=== PATIENT | male | born 1975 | race Caucasian/White ===

== ENCOUNTER 2017-09-18 13:54 | Inpatient (IN) | payer OTHER ==
--- NOTE | 2017-09-18 14:38 | ED Physician Documentation ---
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 He had a CT scan done today showing a concern for appendicitis and was referred to the emergency department. When I asked him why he had a CAT scan done he said it was just screening prior to his planned alcohol detoxification admission. He says he really has not had any abdominal pain, maybe a little in the mornings. He says he has not had any alcohol to drink today but was last drinking p.o. liquids at 1 PM.) Review of Systems Ten Systems: 10 systems reviewed and negative Constitutional: denies: Fever, Chills Respiratory: denies: Dyspnea, Cough GI: reports: Abdominal Pain. denies: Nausea, Vomiting, Diarrhea PD PAST MEDICAL HISTORY - Past Medical History Past Medical History: No - Present Medications Home Medications: Ambulatory Orders Medication Instructions Recorded Confirmed No Known Home Medications [No 09/18/17 09/18/17 Known Home Medications] - Allergies Allergies/Adverse Reactions: Allergies Allergy/AdvReac Type Severity Reaction Status Date / Time Penicillins Allergy Unknown Verified 09/18/17 14:04 - Social History Does the pt smoke?: Yes Smoking Status: Current every day smoker Does the pt drink ETOH?: Yes Does the pt have substance abuse?: Yes - Family History Family history: reports: Non contributory PD ED PE NORMAL - Vitals Vital signs reviewed: Yes - General General: Alert and oriented X 3, No acute distress - HEENT HEENT: Pharynx benign, Other (He says he has not been drinking today but his words are a little slurred and he has bloodshot eyes.) - Neck Neck: Supple, no meningeal sign, No bony TTP - Cardiac Cardiac: RRR, No murmur - Respiratory Respiratory: No respiratory distress, Clear bilaterally - Abdomen Abdomen: Normal bowel sounds, Soft, Non tender - Back Back: No CVA TTP, No spinal TTP - Derm Derm: Normal color, Warm and dry - Extremities Extremities: No edema, No calf tenderness / cord - Neuro Neuro: Alert and oriented X 3, Normal speech - Psych Psych: Normal mood, Normal affect Results - Vitals Vitals: Vital Signs - 24 hr 09/18/17 13:59 Temperature 37.8 C H Heart Rate 115 H Respiratory 18 Rate Blood Pressure 158/84 H O2 Saturation 97 Oxygen O2 Source Room air - Labs Labs: Laboratory Tests 09/18/17 09/18/17 09/18/17 14:30 14:30 14:30 WBC 14.8 H RBC 4.75 Hgb 12.7 L Hct 38.5 L MCV 81.1 MCH 26.8 L MCHC 33.1 RDW 20.9 H Plt Count 156 MPV 8.1 Neut # (Auto) 10.5 H Lymph # (Auto) 2.5 [place] # (Auto) 1.2 H Eos # (Auto) 0.4 Baso # (Auto) 0.1 Absolute Nucleated RBC 0.01 Nucleated RBC % 0.0 PT 16.2 H INR 1.5 H Sodium 132 L Potassium 3.2 L Chloride 97 L Carbon Dioxide 24 Anion Gap 11.0 BUN 9 Creatinine 0.7 Estimated GFR (MDRD) 124 Glucose 164 H Calcium 9.0 Total Bilirubin 2.7 H AST 106 H ALT 56 Alkaline Phosphatase 121 Total Protein 8.3 H Albumin 3.6 Globulin 4.7 H Albumin/Globulin Ratio 0.8 L Lipase 73 H Ethyl Alcohol < 5.0 PD MEDICAL DECISION MAKING - ED course Complexity details: reviewed old records ([facility] today reviewed showing Appendicitis with early phlegmon or abscess behind the cecum, hepatosplenomegaly with portal varices and other incidental findings. ), re-evaluated patient ED course: 41-year-old gentleman with a CT scan from outpatient showing appendicitis, corresponding history and physical are inconsistent. White count as an outpatient was on the Was 14.8 so similar to today. I spoke with the on- call surgeon, Dr. Whipple who defers to medicine for admission. He feels that at this point this is medical management with an interval Appendectomy in about 6 weeks time unless he develops an abscess in which case he might need percutaneous drainage. He recommends Cipro and Flagyl IV and will need prolonged IV antibiotic therapy. Again no surgery now. Call to Dr. Aquino for admission at 3:04 PM. I ordered the Cipro but am holding the Flagyl until his alcohol level is resulted. - Sepsis Event Vital Signs: Vital Signs - 24 hr 09/18/17 13:59 Temperature 37.8 C H Heart Rate 115 H Respiratory 18 Rate Blood Pressure 158/84 H O2 Saturation 97 Oxygen O2 Source Room air Departure - Departure Disposition: 66 [facility] DC/Xfer Clinical Impression: Ruptured appendicitis Condition: Stable
[2017-09-18 14:52] LABS: INR 1.5 (0.8-1.2); PT - PROTHROMBIN TIME 16.2 secs (9.9-12.6)
[2017-09-18 15:00] LABS: ALBUMIN 3.6 g/dL (3.2-5.5); ALBUMIN/GLOBULIN RATIO 0.8 (1.0-2.2); ALKALINE PHOSPHATASE 121 IU/L (42-121); ALT ALANINE AMINOTRANSFERASE 56 IU/L (10-60); AST ASPARTATE AMINOTRANSFERASE 106 IU/L (10-42); BASOPHILS # (AUTO) 0.1 10^3/uL (0.0-0.1); BASOPHILS % (AUTO) 0.8 %; BILIRUBIN,TOTAL 2.7 mg/dL (0.2-1.0); BUN - BLOOD UREA NITROGEN 9 mg/dL (6-20); CARBON DIOXIDE - CO2 24 mmol/L (21-32); CHLORIDE 97 mmol/L (101-111); CREATININE 0.7 mg/dL (0.6-1.2); EOSINOPHILS # (AUTO) 0.4 10^3/uL (0.0-0.7); EOSINOPHILS % (AUTO) 2.5 %; GFR - MDRD 124 (>89); GLUCOSE 164 mg/dL (70-100); HGB - HEMOGLOBIN 12.7 g/dL (14.0-18.0); LIPASE 73 U/L (22-51); LYMPHOCYTES # (AUTO) 2.5 10^3/uL (1.5-3.5); MEAN CORPUSCULAR HEMOGLOBIN 26.8 pg (27.0-31.0); MEAN CORPUSCULAR HGB CONC 33.1 g/dL (32.0-36.0); MEAN CORPUSCULAR VOLUME 81.1 fL (80.0-94.0); MEAN PLATELET VOLUME 8.1 fL (7.4-11.4); MONOCYTES # (AUTO) 1.2 10^3/uL (0.0-1.0); MONOCYTES % (AUTO) 8.2 %; NEUTROPHILS # (AUTO) 10.5 10^3/uL (1.5-6.6); NEUTROPHILS % (AUTO) 71.5 %; PLT - PLATELET COUNT 156 10^3/uL (130-450); RED BLOOD COUNT 4.75 10^6/uL (4.70-6.10); RED CELL DISTRIBUTION WIDTH 20.9 % (12.0-15.0); SODIUM 132 mmol/L (135-145); TOTAL PROTEIN 8.3 g/dL (6.7-8.2); WHITE BLOOD COUNT 14.8 x10^3/uL (4.8-10.8)
[2017-09-18] MEDS ORDERED: CIPROFLOXACIN 400 MG/200 ML 200 ML IV ONE (15:02)
[2017-09-18] MEDS ORDERED: POTASSIUM CHLOR 10 MEQ/100 ML 10 MEQ/100 ML BAG IV ONE (15:20)
[2017-09-18] MEDS ORDERED: metroNIDAZOLE 500 MG/100 ML 500 MG/100 ML BAG IV ONE (15:20)
--- NOTE | 2017-09-18 15:55 | HISTORY & PHYSICAL EXAMINATION ---
Chief Complaint - Chief Complaint Chief Complaint: recommended d/t appendicitis History of Present Illness - Admitted From Admitted From:: ED - History Obtained From Records Reviewed: yes History obtained from: chart review, patient Exam Limitations: none - History of Present Illness HPI Comment/Other: Ilya Denise is a 41-year old male with a past medical history of current tobacco dependence, alcoholism-currently uses, possible sleep apnea and no other medical conditions. He came to the ED today for further work up of a suspected ruptured appendix after getting a pre-admission abdominal CT in order for acceptance into [facility] detox through the [facility]. Upon arrival to the ED labs show an elevated WBC count of 14.8, slight anemia with an H/H of 12.7/38.5 , elevated PT/INR of 16.2/1.5, a low sodium of 132, low potassium of 3.2, an elevated glucose at 164 and an elevated AST at 106, an elevated lipase at 73. The patient was febrile with a temp of 37.8, tachycardia with a heart rate of 115, and hypertensive with a blood pressure of 158/84. Upon exam, surprisingly , the patient does not have abdominal pain, and has not leading up to this presentation. General surgery was consulted, and we will admit the patient to inpatient and start IV antibiotics, and carefully monitor for alcohol withdrawal. 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 He has one brother with no known illnesses. Living arrangement: At home Living Situation: With spouse/s.o. 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 He lives with his , Maninder of 14 years. They have no children. On Sunday, Sunday, and Sunday, he admits to heavy drinking in which he consumes 8-12 beers, and several hard liquor shots. He denies illicit drug use. He admits to at least 1 PPD since age 13 of tobacco dependence. He wishes to be a FULL code. - Substance History Use: Uses substance without health or social issues: Tobacco, Alcohol Use Issues: Mood Disorder Abuse: Recurrent use of substance despite neg consequences: Alcohol Abuse Issues: Intoxication Dependence: Experiences withdrawal or developed tolerances: Tobacco, Alcohol Dependence Issues: Intoxication, Mood Disorder Tobacco Details: Cigarettes - POLST Patient has POLST: No POLST Status: Full Code Meds/Allgy - Home Medications Home Medications: Ambulatory Orders Medication Instructions Recorded Confirmed No Known Home Medications [No 09/18/17 09/18/17 Known Home Medications] - Allergies Allergies/Adverse Reactions: Allergies Allergy/AdvReac Type Severity Reaction Status Date / Time Penicillins Allergy Unknown Verified 09/18/17 14:04 Review of Systems - Ears, Nose & Throat Ears, Nose & Throat: reports: Postnasal drainage - Cardiovascular Cariovascular: reports: Palpitations - Respiratory Respiratory: reports: Snoring, Apnea - Gastrointestinal Gastrointestinal: reports: Abdominal distention, Reflux/heartburn, Bloating - Genitourinary Genitourinary: reports: Frequency, Nocturia - Neurological Neurological: reports: General weakness, Pre-existing deficit - All Other Systems All Other Systems: reports: Reviewed and negative Exam - Vital Signs Reviewed Vital Signs: Yes Vital Signs: Vital Signs x48h Temp Pulse Resp BP Pulse Ox 09/18/17 13:59 37.8 C H 115 H 18 158/84 H 97 - Physical Exam General Appearance: positive: No acute distress, Alert Eyes Bilateral: positive: Normal inspection, Other (+bilateral scleral icterus) ENT: positive: ENT inspection nml, Pharyngeal erythema Neck: positive: Nml inspection, No JVD, Stiff neck Respiratory: positive: Chest non-tender, No respiratory distress, Breath sounds nml Cardiovascular: positive: Regular rate & rhythm, No gallop, Systolic murmur Peripheral Pulses: positive: 2+ Abdomen: positive: Non-tender, Hepatomegaly, Other (rounded, firm, hyperactive BS) Back: positive: Nml inspection Skin: positive: No rash, Warm, Diaphoresis, Other (overal sun looking) Extremities: positive: Non-tender, Full ROM, Nml appearance, No pedal edema Neurologic/Psychiatric: positive: Oriented x3, CN's nml (2-12), Motor nml, Sensation nml, Depressed mood/affect Reflexes: Bicep (R): 3+, Bicep (L): 3+ Conclusion/Plan - Problem List (1) Alcoholism with alcohol dependence Conclusion/Plan: The patient is nearing an admission to detox center ([facility]) that is being managed by the as he is active duty and works [place] the [place] in [place]. He admits to Sunday, Sunday, and Sunday in which he consumes at least 8-12 beers in one sitting with several hard liquor shots. He also admits to not always working everyday, so this may be more often. He admits to drinking ever since the age of 20. Upon exam, he is found to have sweaty palms , sweaty forehead, tremors, and mild anxiety. She is also noted to have scleral icterus, and a firm rounded abdomen. He admits to occasional (a few times per year) of blacking out from drinking. Plan: CIWA with scheduled and PRN lorazepam, telemetry, and nursing scoring. Monitor for worsening of symptoms. (2) Tobacco dependence Conclusion/Plan: The patient requests a nicotine patch and admits to 1PPD smoking history since age 13 years. Plan: continue nicotine. (3) Acute phlegmonous appendicitis Conclusion/Plan: General surgery has been consulted and films from [facility] (abdominal CT) were sent for our review. Preliminary findings suggest a possible ruptured appendix/phlegmon, so he was sent to the ED. IV antibiotics flagyl, cipro, and CL diet for now. Plan: Await general surgery plans. - Lab Results Lab results reviewed: Yes Shashi Bones: 09/19/17 05:15 09/19/17 05:15 - Diagnostic Imaging Results Diagnostic Imaging Results: positive: Prelim report reviewed, Final report reviewed - EKG Results EKG Interpreted Independently: Yes EKG Comparison: No prior EKG Core Measures - Anticipated LOS I expect patient to be DC'd or transferred within 96 hours.: Yes - DVT/VTE - Prophylaxis VTE/DVT Device ordered at admit?: Yes VTE/DVT Prophylaxis med ordered at admit?: Yes - Stroke - Rehab Assessment Rehab services assessment to be ordered?: No Not Ordered - Medical Reason: Contraindicated - AMI - Statin at Admit Aspirin Prescribed on Admit: No Not Ordered - Medical Reason: Contraindicated
[2017-09-18 16:41] LABS: PLATELET ESTIMATE, MANUAL NORMAL (130-450,000) (NORMAL); PLATELET MORPHOLOGY NORMAL APPEARANCE (NORMAL); RBC MORPHOLOGY (MULTIPLE) 2+ ANISOCYTOSIS (NORMAL)
[2017-09-18] MEDS: SODIUM CHLORIDE FLUSH 0.9% 10 ML SYRINGE IVP SCH (18:07)
[2017-09-18] MEDS: NICOTINE 21 MG PATCH TOP SCH (18:07)
[2017-09-18] MEDS ORDERED: LORazepam 2 MG/ML VIAL IVP PRN (18:50)
[2017-09-18] MEDS ORDERED: VANCOMYCIN INJ 2 GM in SODIUM CHLORIDE 0.9% 500 ML IV SCH (20:00)
[2017-09-18] MEDS ORDERED: VANCOMYCIN PER PHARMACY 100 GM in SODIUM CHLORIDE 0.9% 250 ML IV SCH (20:00)
[2017-09-18] MEDS: LORazepam 2 MG/ML VIAL IVP SCH (20:06)
[2017-09-18] MEDS: CIPROFLOXACIN 400 MG/200 ML 200 ML IV SCH (23:03)
[2017-09-19] MEDS: LORazepam 2 MG/ML VIAL IVP SCH ×6 (00:11→20:32)
[2017-09-19] MEDS: SODIUM CHLORIDE FLUSH 0.9% 10 ML SYRINGE IVP SCH ×3 (00:11→15:54)
--- NOTE | 2017-09-19 00:59 | CONSULTATION NOTE ---
Referring Provider Name of Referring Provider:: Dr. Man Win Consult Date: 09/18/17 Chief Complaint - Chief Complaint Chief Complaint: CT findings of appendiceal phlegmon (NOT rupture) History of Present Illness - Admitted From Admitted From:: [facility] ED - History Obtained From Records Reviewed: Yes History obtained from: Patient and chart Exam Limitations: None - History of Present Illness HPI Comment/Other: 42 year old alcoholic male who was supposed to enter an alcohol dependency program and had a CT scan of his abdomen (through the [place]) that showed an appendiceal phlegmon. The patient is minimally symptomatic. No nausea, no vomiting, no fever and only minimal to no abdominal pain. 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 He has one brother with no known illnesses. Living arrangement: At home Living Situation: With spouse/s.o. 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 He lives with his , Maninder of 14 years. They have no children. On Sunday, Sunday, and Sunday, he admits to heavy drinking in which he consumes 8-12 beers, and several hard liquor shots. He denies illicit drug use. He admits to at least 1 PPD since age 13 of tobacco dependence. He wishes to be a FULL code. - Substance History Use: Uses substance without health or social issues: Tobacco, Alcohol Use Issues: Mood Disorder Abuse: Recurrent use of substance despite neg consequences: Alcohol Abuse Issues: Intoxication Dependence: Experiences withdrawal or developed tolerances: Tobacco, Alcohol Dependence Issues: Intoxication, Mood Disorder Tobacco Details: Cigarettes - POLST Patient has POLST: No POLST Status: Full Code Meds/Allgy - Home Medications Home Medications: Ambulatory Orders Medication Instructions Recorded Confirmed Multivitamin [Theragran] 1 tab PO DAILY 09/19/17 09/19/17 Cheriton-3/Dha/Epa/Fish Oil [Fish Oil 1,000 mg PO DAILY 09/19/17 09/19/17 1,000 mg Softgel] LORazepam INJ [Ativan Inj (Vial)] 0.5 mg IVP Q2H PRN vial 09/20/17 LORazepam [Ativan] 1 mg PO Q6H tablet 09/20/17 Magnesium Oxide [Mag Ox] 400 mg PO BID tablet 09/20/17 Metoprolol Succinate [Toprol Xl] 25 mg PO BID tablet 09/20/17 Multivitamin [Theragran] 1 tab PO DAILYWM tablet 09/20/17 Nicotine 21 mg Patch [Nicoderm] 1 patch TOP DAILY patch 09/20/17 Polyethylene Glycol 3350 [Miralax] 17 gm PO DAILY packet 09/20/17 - Allergies Allergies/Adverse Reactions: Allergies Allergy/AdvReac Type Severity Reaction Status Date / Time Penicillins Allergy Unknown Verified 09/18/17 14:04 Exam - Vital Signs Reviewed Vital Signs: Yes Vital Signs: Vital Signs x48h Temp Pulse Resp BP Pulse Ox 09/19/17 00:17 37.2 C 87 16 124/72 97 09/18/17 20:04 37.1 C 99 16 130/67 96 - Physical Exam General Appearance: positive: No acute distress Eyes Bilateral: positive: No lid inflammation, Conjunctivae nml, Other ( Slightly icteric.) ENT: positive: No signs of dehydration Neck: positive: Trachea midline Respiratory: positive: Chest non-tender, No respiratory distress, Breath sounds nml Cardiovascular: positive: Regular rate & rhythm Abdomen: positive: Non-tender (No peritoneal findings.), Nml bowel sounds, No distention Back: positive: Nml inspection Extremities: positive: Nml appearance Neurologic/Psychiatric: positive: Oriented x3 Conclusion/Plan - Diagnosis Diagnosis: Appendiceal phlegmon NOT rupture - Plan Plan: Supportive care with antibiotics (Ciprofloxacin and Flagyl given due to penicillin allergy) and IV fluids. Surgery is NOT indicated at this time. Should the phlegmon resolve into an abscess then interventional radiologic drainage is indicated. With complete resolution of the phlegmon then there is the question of an inerval appendectomy in 6-8 weeks. In the interim I am sure that serial CT scans will be done to check for the adequacy of our therapy and continued healing. The timing of the CT scans should be done in 48 hours and 1 week unless there is a clinical reason to do them sooner. - Lab Results Lab results reviewed: Yes Fish Bones: 09/20/17 05:15 09/20/17 05:15 - Diagnostic Imaging Results Diagnostic Imaging Results: positive: Final report reviewed
[2017-09-19] MEDS: SODIUM CHLORIDE FLUSH 0.9% 10 ML SYRINGE IVP PRN (04:52)
[2017-09-19 05:41] LABS: BASOPHILS # (AUTO) 0.3 10^3/uL (0.0-0.1); EOSINOPHILS # (AUTO) 0.6 10^3/uL (0.0-0.7); EOSINOPHILS % (AUTO) 5.4 %; HGB - HEMOGLOBIN 12.3 g/dL (14.0-18.0); LYMPHOCYTES # (AUTO) 2.1 10^3/uL (1.5-3.5); LYMPHOCYTES % (AUTO) 19.9 %; MEAN CORPUSCULAR HEMOGLOBIN 27.3 pg (27.0-31.0); MEAN CORPUSCULAR VOLUME 82.7 fL (80.0-94.0); MEAN PLATELET VOLUME 8.4 fL (7.4-11.4); MONOCYTES # (AUTO) 0.9 10^3/uL (0.0-1.0); MONOCYTES % (AUTO) 9.1 %; NEUTROPHILS # (AUTO) 6.6 10^3/uL (1.5-6.6); NEUTROPHILS % (AUTO) 62.6 %; PLT - PLATELET COUNT 133 10^3/uL (130-450); RED BLOOD COUNT 4.52 10^6/uL (4.70-6.10); RED CELL DISTRIBUTION WIDTH 20.7 % (12.0-15.0); WHITE BLOOD COUNT 10.5 x10^3/uL (4.8-10.8)
[2017-09-19 05:49] LABS: ALBUMIN 3.2 g/dL (3.2-5.5); ALBUMIN/GLOBULIN RATIO 0.8 (1.0-2.2); BILIRUBIN,TOTAL 2.1 mg/dL (0.2-1.0); CALCIUM 8.5 mg/dL (8.5-10.3); CREATININE 0.5 mg/dL (0.6-1.2); MAGNESIUM 1.7 mg/dL (1.7-2.8); PHOSPHORUS 3.7 mg/dL (2.5-4.6); TOTAL PROTEIN 7.2 g/dL (6.7-8.2)
[2017-09-19 06:42] LABS: PLATELET ESTIMATE, MANUAL NORMAL (130-450,000) (NORMAL)
[2017-09-19] MEDS ORDERED: VANCOMYCIN INJ 1.75 GM in SODIUM CHLORIDE 0.9% 500 ML IV SCH ×2 (08:00→09:00)
--- NOTE | 2017-09-19 08:17 | PROVIDER PROGRESS NOTE ---
Subjective - Prog Note Date Prog Note Date: 09/19/17 Prog Note Time: 08:17 - Subjective Pt reports feeling: Improved Subjective: Thuan has no complaints, and wonders about going home. He denies new symptoms such as shortness of breath, chest pain, nausea, vomiting, or a new cough. He states he has been tolerating liquids and would like his diet advanced. Current Medications - Current Medications Current Medications: Active Medications Multivitamins 10 ml/ Sodium (Chloride) 1,010 mls @ 100 mls/hr IV DAILY [facility] Last Infusion: 09/19/17 22:19 Dose: Infused Ciprofloxacin (Cipro 400 Mg/200 Ml) 200 mls @ 200 mls/hr IV Q12H KACIE Last Infusion: 09/19/17 22:21 Dose: Infused Metronidazole (Flagyl 500 Mg/100 Ml) 500 mg in 100 mls @ 100 mls/hr IV Q8H [facility] Last Infusion: 09/20/17 01:27 Dose: Infused Lorazepam (Ativan Inj (Vial)) 0.5 mg IVP Q2H PRN PRN Reason: Anxiety Lorazepam (Ativan Inj (Vial)) 1 mg IVP Q6H [facility] Last Admin: 09/20/17 01:52 Dose: 1 mg Magnesium Oxide (Mag Ox) 400 mg PO BID [facility] Last Admin: 09/19/17 20:33 Dose: 400 mg Metoprolol Succinate (Toprol Xl) 25 mg PO BID [facility] Last Admin: 09/19/17 20:33 Dose: 25 mg Nicotine (Nicoderm) 1 patch TOP DAILY [facility] Last Admin: 09/19/17 08:46 Dose: 1 patch Polyethylene Glycol (Miralax) 17 gm PO DAILY [facility] Last Admin: 09/19/17 08:54 Dose: Not Given Potassium Chloride (K-Dur) 60 meq PO DAILYWM [facility] Last Admin: 09/19/17 15:54 Dose: 60 meq Sodium Chloride (Normal Saline Flush 0.9%) 10 ml IVP PRN PRN PRN Reason: NEEDED PER PROVIDER ORDERS Last Admin: 09/19/17 04:52 Dose: 10 ml Sodium Chloride (Normal Saline Flush 0.9%) 10 ml IVP 0100,0900,1700 [facility] Last Admin: 09/20/17 00:17 Dose: Not Given Multivitamin [Theragran] 1 tab PO DAILY 09/19/17 [place]-3/Dha/Epa/Fish Oil [Fish Oil 1,000 mg Softgel] 1,000 mg PO DAILY 09/19/17 Objective - Vital Signs/Intake & Output Reviewed Vital Signs: Yes Vital Signs: Vital Signs x48h Temp Pulse Resp BP Pulse Ox 09/19/17 07:32 37.1 C 90 20 116/81 H 97 09/19/17 04:35 37.2 C 86 16 127/69 96 Intake & Output: Intake & Output 09/16/17 09/17/17 09/18/17 09/19/17 23:59 23:59 23:59 23:59 Intake Total 1870 600 Output Total 1600 Balance 1870 -1000 - Objective General Appearance: positive: No acute distress, Alert, Anxious Eyes Bilateral: positive: Normal inspection Eyes: OU Scleral icterus ENT: positive: ENT inspection nml, Pharyngeal erythema, Dry mucous membranes Neck: positive: Nml inspection, Thyroid nml, No JVD, Trachea midline, Stiff neck Respiratory: positive: Chest non-tender, No respiratory distress, Other ( diminished) Cardiovascular: positive: Regular rate & rhythm, No gallop, Tachycardia, Systolic murmur Abdomen: positive: Hepatomegaly, Abnml bowel sounds, Other (rounded, firm) Back: positive: Nml inspection Skin: positive: No rash, Warm, Dry, Other (mild jaundice-sun) Extremities: positive: Non-tender, Full ROM, Nml appearance, No pedal edema Neurologic/Psychiatric: positive: Oriented x3, CN's nml (2-12), Motor nml, Sensation nml, Weakness, Depressed mood/affect Reflexes: Bicep (R): 2+, Bicep (L): 2+ - Lab Results Fish Bones: 09/20/17 05:15 09/20/17 05:15 Other Labs: Lab Results x24hrs 09/19/17 09/19/17 Range/Units 05:15 05:15 WBC 10.5 (4.8-10.8) x10^3/uL RBC 4.52 L (4.70-6.10) 10^6/uL Hgb 12.3 L (14.0-18.0) g/dL Hct 37.4 L (42.0-52.0) % MCV 82.7 (80.0-94.0) fL MCH 27.3 (27.0-31.0) pg MCHC 33.0 (32.0-36.0) g/dL RDW 20.7 H (12.0-15.0) % Plt Count 133 (130-450) 10^3/uL MPV 8.4 (7.4-11.4) fL Neut # (Auto) 6.6 (1.5-6.6) 10^3/uL Lymph # (Auto) 2.1 (1.5-3.5) 10^3/uL [place] # (Auto) 0.9 (0.0-1.0) 10^3/uL Eos # (Auto) 0.6 (0.0-0.7) 10^3/uL Baso # (Auto) 0.3 H (0.0-0.1) 10^3/uL Absolute Nucleated RBC 0.00 x10^3/uL Nucleated RBC % 0.0 /100WBC Manual Slide Review Indicated Platelet Estimate NORMAL (130-450,000) (NORMAL) RBC Morph Micro Appear 1+ OVALOCYTES (NORMAL) Sodium 134 L (135-145) mmol/L Potassium 3.4 L (3.5-5.0) mmol/L Chloride 103 (101-111) mmol/L Carbon Dioxide 23 (21-32) mmol/L Anion Gap 8.0 (6-13) BUN 6 (6-20) mg/dL Creatinine 0.5 L (0.6-1.2) mg/dL Estimated GFR (MDRD) 182 (>89) Glucose 142 H (70-100) mg/dL Calcium 8.5 (8.5-10.3) mg/dL Phosphorus 3.7 (2.5-4.6) mg/dL Magnesium 1.7 (1.7-2.8) mg/dL Total Bilirubin 2.1 H (0.2-1.0) mg/dL GGT 282 H (8-55) IU/L AST 86 H (10-42) IU/L ALT 46 (10-60) IU/L Alkaline Phosphatase 102 (42-121) IU/L Total Protein 7.2 (6.7-8.2) g/dL Albumin 3.2 (3.2-5.5) g/dL Globulin 4.0 (2.1-4.2) g/dL Albumin/Globulin Ratio 0.8 L (1.0-2.2) ABX Reporting Has patient been on IV antibiotics over the past 48 hours?: Yes Assessment/Plan - Problem List (1) Acute phlegmonous appendicitis Impression: General surgery has been consulted and films from [facility] (abdominal CT) were sent for our review. IV antibiotics flagyl, cipro, and increased diet to a soft-regular. General surgery was consulted and recommends to continue antibiotics and the patient does not require surgery at this time. He will be treated with antibiotics for ~6 weeks, then will need re-imaging. This may be unreasonable as his alcoholism is advanced and he will likely return to drinking while he is awaiting rehab. Plan: Continue antibiotics, scheduled lorazepam for potential withdrawal. (2) Cardiomyopathy, alcoholic Impression: The patient had an echocardiogram due to tachycardia, a heart murmur and liver disease. Preliminary results show an unfortunate global cardiomyopathy with an impaired EF of only 45-50%. Also noted is severe right atrial enlargement. He has been started on metoprolol succinate of 25 mg BID PO. He will need to establish a supervisory aide upon discharge. Plan: Continue medication, and encourage cessation. (3) Alcoholism with alcohol dependence Impression: The patient is nearing an admission to detox center ([facility]) that is being managed by the as he is active duty and works on the [place] in [place]. He admits to Sunday, Sunday, and Sunday in which he consumes at least 8-12 beers in one sitting with several hard liquor shots. He is mildly jaundice and has scleral icterus, with a firm rounded abdomen. He admits to occasional (a few times per year) of blacking out from drinking. Plan: CIWA with scheduled and PRN lorazepam, which was decreased today to every 6 hours, and telemetry. Monitor for worsening of symptoms. (4) Elevated liver enzymes Impression: The patient is found to have an elevated AST/ALT at 106/56 upon admission, that is 86/46 today. He has a total bili of 2.4, that is reduced to 2.1 today. A GGT was elevated at 282, confirming current alcohol use. Plan: Continue to monitor daily labs. (5) Tobacco dependence Impression: The patient requests a nicotine patch and admits to 1PPD smoking history since age 13 years. Today, the patient has no complaints and admits to a reduced craving since wearing the patch. Plan: continue nicotine.
[2017-09-19] MEDS: NICOTINE 21 MG PATCH TOP SCH (08:46)
[2017-09-19] MEDS: metroNIDAZOLE 500 MG/100 ML 500 MG/100 ML BAG IV SCH ×2 (08:46→16:01)
[2017-09-19] MEDS: POLYETHYLENE GLYCOL 3350 17 GM PACKET PO SCH (08:54)
[2017-09-19] MEDS: CIPROFLOXACIN 400 MG/200 ML 200 ML IV SCH ×2 (11:17→21:21)
[2017-09-19] MEDS: MULTIVITAMIN 10 ML in SODIUM CHLORIDE 0.9% 1,000 ML IV SCH (12:13)
[2017-09-19] MEDS ORDERED: MAGNESIUM OXIDE 400 MG TABLET PO SCH (14:00)
[2017-09-19] MEDS ORDERED: POTASSIUM CHLORIDE 20 MEQ TABLET PO SCH (14:00)
[2017-09-19 14:34] LABS: HB2 TOTAL 12.5 g/dL; HEMOGLOBIN A1C 0.74 g/dL; HEMOGLOBIN A1C % 7.6 % (4.6-6.2)
[2017-09-19] MEDS: POTASSIUM CHLORIDE 20 MEQ TABLET PO SCH (15:54)
[2017-09-19] MEDS: MAGNESIUM OXIDE 400 MG TABLET PO SCH ×2 (15:54→20:33)
[2017-09-19] MEDS: METOPROLOL SUCCINATE 25 MG TABLET PO SCH (20:33)
[2017-09-20] MEDS: SODIUM CHLORIDE FLUSH 0.9% 10 ML SYRINGE IVP SCH ×2 (00:17→08:30)
[2017-09-20] MEDS: metroNIDAZOLE 500 MG/100 ML 500 MG/100 ML BAG IV SCH ×3 (00:17→15:59)
[2017-09-20] MEDS: LORazepam 2 MG/ML VIAL IVP SCH (01:52)
[2017-09-20 05:39] LABS: BASOPHILS # (AUTO) 0.3 10^3/uL (0.0-0.1); BASOPHILS % (AUTO) 2.8 %; EOSINOPHILS # (AUTO) 0.6 10^3/uL (0.0-0.7); EOSINOPHILS % (AUTO) 5.9 %; HGB - HEMOGLOBIN 12.6 g/dL (14.0-18.0); LYMPHOCYTES # (AUTO) 2.2 10^3/uL (1.5-3.5); LYMPHOCYTES % (AUTO) 21.6 %; MEAN CORPUSCULAR HEMOGLOBIN 26.9 pg (27.0-31.0); MEAN CORPUSCULAR HGB CONC 32.1 g/dL (32.0-36.0); MEAN CORPUSCULAR VOLUME 83.6 fL (80.0-94.0); MEAN PLATELET VOLUME 8.1 fL (7.4-11.4); MONOCYTES # (AUTO) 1.1 10^3/uL (0.0-1.0); MONOCYTES % (AUTO) 10.1 %; NEUTROPHILS # (AUTO) 6.2 10^3/uL (1.5-6.6); NEUTROPHILS % (AUTO) 59.6 %; PLT - PLATELET COUNT 148 10^3/uL (130-450); RED BLOOD COUNT 4.68 10^6/uL (4.70-6.10); RED CELL DISTRIBUTION WIDTH 21.2 % (12.0-15.0); WHITE BLOOD COUNT 10.4 x10^3/uL (4.8-10.8)
[2017-09-20 05:47] LABS: ALBUMIN 3.3 g/dL (3.2-5.5); ALBUMIN/GLOBULIN RATIO 0.8 (1.0-2.2); BILIRUBIN,TOTAL 1.6 mg/dL (0.2-1.0); CALCIUM 8.9 mg/dL (8.5-10.3); CREATININE 0.6 mg/dL (0.6-1.2); TOTAL PROTEIN 7.6 g/dL (6.7-8.2)
[2017-09-20 06:17] LABS: PLATELET ESTIMATE, MANUAL NORMAL (130-450,000) (NORMAL)
[2017-09-20] MEDS ORDERED: LORazepam 0.5 MG TABLET PO SCH (08:00)
[2017-09-20] MEDS ORDERED: SODIUM CHLORIDE 0.9% 2,000 ML IV ONE (08:14)
[2017-09-20] MEDS: MULTIVITAMIN 10 ML in SODIUM CHLORIDE 0.9% 1,000 ML IV SCH (08:22)
[2017-09-20] MEDS: MAGNESIUM OXIDE 400 MG TABLET PO SCH (08:23)
[2017-09-20] MEDS: METOPROLOL SUCCINATE 25 MG TABLET PO SCH (08:23)
[2017-09-20] MEDS: POTASSIUM CHLORIDE 20 MEQ TABLET PO SCH (08:24)
[2017-09-20] MEDS: NICOTINE 21 MG PATCH TOP SCH (08:24)
[2017-09-20] MEDS: POLYETHYLENE GLYCOL 3350 17 GM PACKET PO SCH (08:29)
[2017-09-20] MEDS: CIPROFLOXACIN 400 MG/200 ML 200 ML IV SCH (09:47)
[2017-09-20] MEDS: SODIUM CHLORIDE FLUSH 0.9% 10 ML SYRINGE IVP PRN (10:54)
[2017-09-20] MEDS ORDERED: MULTIVITAMIN TABLET PO SCH (12:00)
--- NOTE | 2017-09-20 12:11 | Discharge Plan ---
Discharge Plan Disposition: 02 Transfer Acute Care Hosp Condition: Stable Diet: Regular Activity Restrictions: Activity as Tolerated Shower Restrictions: No Driving Restrictions: No Weight Bearing: Full Weight Additional Instructions or Follow Up instructions: Transfer to [facility] No Smoking: If you smoke, Please STOP! Call for help.
[2017-09-20 12:14] VITALS: BP 142/87
--- NOTE | 2017-09-20 12:34 | DISCHARGE SUMMARY ---
"Discharge Summary Admit Date: 09/18/17 Discharge Date: 09/20/17 Discharging Provider: TAYLOR Trevizo Primary Care Provider: Dr. Ac[place] Code Status: Attempt Resuscitation Condition at Discharge: Stable Discharge Disposition: 02 Transfer Acute Care Hosp - DIAGNOSES Admission Diagnoses: Unspecified acute appendicitis (K35.80) Alcohol dependence, uncomplicated (F10.20) Discharge Diagnoses with Status of Each Condition: Acute phlegmonous appendicitis (K35.89) new on this admission, care to continue at [facility]. Cardiomyopathy, alcoholic (I42.6) new on this admission, will need prompt cardiology follow up, and an increased metoprolol dosing. Alcoholism with alcohol dependence (F10.20) chronic, monitored for withdrawal. Elevated liver enzymes (R74.8) improved, chronic. Tobacco dependence (F17.200) chronic, nicotine patch. - HPI History of Present Illness: Ilya Denise is a 41-year old male with a past medical history of current tobacco dependence, alcoholism-currently uses, possible sleep apnea and no other medical conditions. He came to the ED today for further work up of a suspected ruptured appendix after getting a pre-admission abdominal CT in order for acceptance into [facility] detox through the [place]. Upon arrival to the ED labs show an elevated WBC count of 14.8, slight anemia with an H/H of 12.7/38.5 , elevated PT/INR of 16.2/1.5, a low sodium of 132, low potassium of 3.2, an elevated glucose at 164 and an elevated AST at 106, an elevated lipase at 73. The patient was febrile with a temp of 37.8, tachycardia with a heart rate of 115, and hypertensive with a blood pressure of 158/84. Upon exam, surprisingly , the patient does not have abdominal pain, and has not leading up to this presentation. General surgery was consulted, and we will admit the patient to inpatient and start IV antibiotics, and carefully monitor for alcohol withdrawal. - CONSULTS | PROCEDURES Consultations: General surgery- Rakesh Barry MD - HOSPITAL COURSE Hospital Course: The following diagnoses were prevalent during this hospital stay: (1) Acute phlegmonous appendicitis General surgery has been consulted and films from [facility] (abdominal CT) were sent for our review. IV antibiotics flagyl, cipro, and increased diet to a soft-regular. General surgery was consulted and recommends to continue antibiotics and the patient does not require surgery at this time. He will be treated with antibiotics for ~6 weeks, then will need re-imaging. This may be unreasonable as his alcoholism is advanced and he will likely return to drinking while he is awaiting rehab, so arrangements were made with [facility] directly to transfer via [facility] to ensure full treatment. The patient was continued on IV antibiotics, scheduled lorazepam, that was prescribed every 6 hours, and increased to every 4 hours as he showed increased signs of withdrawal including increased tremors, sweaty palms, increased anxiety , and became a flight risk prior to ambulance transfer. (2) Cardiomyopathy, alcoholic The patient had an echocardiogram due to tachycardia, a heart murmur and liver disease. Preliminary results show an unfortunate global cardiomyopathy with an impaired EF of only 45-50%. Also noted is severe right atrial enlargement. He has been started on metoprolol succinate of 25 mg BID PO. 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 He was continued on the metoprolol, that will need to be increased in the next few days to appropriately manage this new diagnosis. 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 He admits to Sunday, Sunday, and Sunday in which he consumes at least 8-12 beers in one sitting with several hard liquor shots. He is mildly jaundice and has scleral icterus, with a firm rounded abdomen. He now, unfortunately, has new alcoholic cardiomyopathy that was discovered during an echocardiogram as a consequence of this disease. He admits to occasional (a few times per year) of blacking out from drinking. The patient was scored on the CIWA protocol, with scheduled and PRN lorazepam, every 4 hours, and telemetry monitoring. (4) Elevated liver enzymes The patient is found to have an elevated AST/ALT at 106/56 upon admission, that is 98/48 today. He has a total bili of 2.4, that is reduced to 1.7 today. A GGT was elevated at 282, confirming current alcohol use. (5) Tobacco dependence The patient requests a nicotine patch, which was prescribed at the 20 dose, and admits to 1PPD smoking history since age 13 years. Today, the patient has shown signs of leaving against medical advise prior to transfer. He, however, had no complaints and admits to a reduced craving since wearing the patch. (6) Diabetes mellitus type 2 A hemoglobin A1C was elevated at 7.6%, and he had an early AM sugar today of 122. This has not been treated as this will likely improve with his upcoming alcohol cessation at [facility], but should be followed either by PCP, or during his rehab stay. Disposition: The patient is in stable medical condition at the time of discharge. - ALLERGIES Allergies/Adverse Reactions: Allergies Allergy/AdvReac Type Severity Reaction Status Date / Time Penicillins Allergy Unknown Verified 09/18/17 14:04 - MEDICATIONS Home Medications: Ambulatory Orders Medication Instructions Recorded Confirmed Multivitamin [Theragran] 1 tab PO DAILY 09/19/17 09/19/17 [place]-3/Dha/Epa/Fish Oil [Fish Oil 1,000 mg PO DAILY 09/19/17 09/19/17 1,000 mg Softgel] LORazepam INJ [Ativan Inj (Vial)] 0.5 mg IVP Q2H PRN vial 09/20/17 LORazepam [Ativan] 1 mg PO Q6H tablet 09/20/17 Magnesium Oxide [Mag Ox] 400 mg PO BID tablet 09/20/17 Metoprolol Succinate [Toprol Xl] 25 mg PO BID tablet 09/20/17 Multivitamin [Theragran] 1 tab PO DAILYWM tablet 09/20/17 Nicotine 21 mg Patch [Nicoderm] 1 patch TOP DAILY patch 09/20/17 Polyethylene Glycol 3350 [Miralax] 17 gm PO DAILY packet 09/20/17 - PHYSICAL EXAM AT DISCHARGE General Appearance: positive: Alert, Moderate distress, Anxious Eyes Bilateral: positive: Normal inspection. negative: No scleral icterus ( bilateral scleral icterus) ENT: positive: ENT inspection nml, No signs of dehydration, Pharyngeal erythema Neck: positive: Nml inspection, Thyroid nml, No JVD Respiratory: positive: Chest non-tender, No respiratory distress, Other ( diminished) Cardiovascular: positive: Regular rate & rhythm, Tachycardia, Systolic murmur Peripheral Pulses: positive: 2+, 1+ Abdomen: positive: Non-tender, Hepatomegaly, Abnml bowel sounds, Other (rounded , firm) Back: positive: Nml inspection Skin: positive: No rash, Warm, Dry, Other (mild jaundice) Extremities: positive: Non-tender, Full ROM, Nml appearance, No pedal edema, Other (sweaty palms, mild diaphoresis) Neurologic/Psychiatric: positive: Oriented x3, CN's nml (2-12), Motor nml, Sensation nml, Weakness, Depressed mood/affect Reflexes: Bicep (R): 3+, Bicep (L): 3+ - LABS Result Diagrams: 09/20/17 05:15 09/20/17 05:15 - DIAGNOSTIC IMAGING Diagnostic Imaging Results: Prelim report reviewed, Final report reviewed - TIME SPENT Time Spent in Discharge (Minutes): 50"
[2017-09-20] MEDS: LORazepam 0.5 MG TABLET PO SCH ×2 (12:39→15:40)
--- NOTE | 2017-09-20 22:18 | PROVIDER PROGRESS NOTE ---
Subjective - General Admit Date: 09/18/17 - Review of Systems General: positive: No symptoms HEENT: positive: No symptoms Pulmonary: positive: No symptoms Cardiovascular: positive: No symptoms Gastrointestinal: positive: No symptoms Genitourinary: positive: No symptoms Musculoskeletal: positive: No symptoms Skin: positive: No symptoms Psychiatric: positive: No symptoms All Other Systems: positive: Reviewed and negative Objective - Patient Data Reviewed Vital Signs: Yes Weight: Weight 09/18/17 09/19/17 09/20/17 23:59 23:59 23:59 Weight (kg) 104 kg 104 kg 104.5 kg Intake & Output: Intake and Output Totals x24h 09/18/17 09/19/17 09/20/17 23:59 23:59 23:59 Intake Total 1870 3803 2821.666 Output Total 4450 2100 Balance 1870 -647 721.666 - Lab Results Lab Results: 09/20/17 05:15 09/20/17 05:15 Other Lab Results: Lab Results x24hrs 09/20/17 09/20/17 09/20/17 Range/Units 05:15 05:15 05:15 WBC 10.4 (4.8-10.8) x10^3/uL RBC 4.68 L (4.70-6.10) 10^6/uL Hgb 12.6 L (14.0-18.0) g/dL Hct 39.1 L (42.0-52.0) % MCV 83.6 (80.0-94.0) fL MCH 26.9 L (27.0-31.0) pg MCHC 32.1 (32.0-36.0) g/dL RDW 21.2 H (12.0-15.0) % Plt Count 148 (130-450) 10^3/uL MPV 8.1 (7.4-11.4) fL Neut # (Auto) 6.2 (1.5-6.6) 10^3/uL Lymph # (Auto) 2.2 (1.5-3.5) 10^3/uL [place] # (Auto) 1.1 H (0.0-1.0) 10^3/uL Eos # (Auto) 0.6 (0.0-0.7) 10^3/uL Baso # (Auto) 0.3 H (0.0-0.1) 10^3/uL Absolute Nucleated RBC 0.00 x10^3/uL Nucleated RBC % 0.0 /100WBC Manual Slide Review Indicated Platelet Estimate NORMAL (130-450,000) (NORMAL) RBC Morph Micro Appear 1+ HYPOCHROMASIA (NORMAL) Sodium 138 (135-145) mmol/L Potassium 4.1 (3.5-5.0) mmol/L Chloride 105 (101-111) mmol/L Carbon Dioxide 25 (21-32) mmol/L Anion Gap 8.0 (6-13) BUN 6 (6-20) mg/dL Creatinine 0.6 (0.6-1.2) mg/dL Estimated GFR (MDRD) 147 (>89) Glucose 122 H (70-100) mg/dL Calcium 8.9 (8.5-10.3) mg/dL Total Bilirubin 1.6 H (0.2-1.0) mg/dL AST 98 H (10-42) IU/L ALT 48 (10-60) IU/L Alkaline Phosphatase 111 (42-121) IU/L B-Natriuretic Peptide 26 (5-100) pg/mL Total Protein 7.6 (6.7-8.2) g/dL Albumin 3.3 (3.2-5.5) g/dL Globulin 4.3 H (2.1-4.2) g/dL Albumin/Globulin Ratio 0.8 L (1.0-2.2) Amylase 61 (28-100) U/L Lipase 47 (22-51) U/L - Imaging Results Radiology Imaging: positive: Final report received - Physical Exam General Appearance: positive: No acute distress (Patient does appear a bit pasty.) Eyes Bilateral: positive: No lid inflammation, Conjunctivae nml ENT: positive: No signs of dehydration Neck: positive: Trachea midline Respiratory: positive: Chest non-tender, No respiratory distress, Breath sounds nml Cardiovascular: positive: Regular rate & rhythm Abdomen: positive: Non-tender, Nml bowel sounds, Other (Distneded but this is normal for him.) Extremities: positive: Nml appearance Neurologic/Psychiatric: positive: Oriented x3 Impression/Plan - Problem List Problem List: Appendiceal phlegmon in the setting of a 42 year old male with severe alcoholic disease - demonstrating compromise of his heart and liver. Treatment is completion of his 14 days of antibiotics followed by a CT scan of his abdomen to ensure resolution of his phlegmon. At that time and depending on his alcoholic cardiomyopathy, liver disease and where he is in his treatment for his alcohol dependency an interval appendectomy can be discussed. Follow up with me or a general surgeon in about 3 weeks to evaluate the CT scan and the patient's clinical status. In no uncertain terms I explained to the patient that if he does not stop drinking alcohol he will a premature and horrible . He vocalized an understanding and a willingness to stop.
== END 2017-09-20 16:00 | disposition short-term general hospital (02) | DRG 394 ==
LOC: ED 13:54 → MS2 15:45 → EDBD 15:45
PROVIDERS: ADMIT Nurse Practitioner; ATTEND Nurse Practitioner
DX: K35.80 Unspecified acute appendicitis (principal); I42.6 Alcoholic cardiomyopathy; Z72.0 Tobacco use; F10.20 Alcohol dependence, uncomplicated
CPT/HCPCS: 36415; 80053; 80320; 82150; 82977; 83036; 83690; 83735; 83880; 84100; 84443; 85025; 85610; 93306; 96365; 99283; 99284